=== PATIENT | female | born 1995 | race Caucasian/White ===

== ENCOUNTER → 2020-06-07 | Outpatient (CLI) | payer OTHER ==
[~2020-06-07] MED LIST: ALBUTEROL0.09 MG/A2 INH; ANAPROX DS550 MG PO; ATENOLOL25 MG PO; BACTRIM DS 8001 TAB PO; BIRTH CONTROL1 EAC1 PO; DEPO MEDRO40 MG/1 ML IM; FLEXERIL10 MG PO; GILDESS FE 1/201 TAB PO; IMITREX25 MG PO; MACROBID100 M1 PO; MIDODRINE HCL5 MG PO; MOTRIN800 MG PO; Motrin,Rufen800 MG PO; NO DAILY MEDS; NORFLEX100 MG PO; PRENATAL1 TA4 PO; PROAIR HFA0.09 MG/AC INH; PYRIDIUM200 M1 PO; ZOFRAN4 MG PO
== END | disposition home or self-care (01) ==
LOC: COVID19 11:15
PROVIDERS: ATTEND Family Medicine
DX: U07.1 COVID-19 (principal)

== ENCOUNTER → 2022-07-15 | Outpatient (CLI) | payer OTHER ==
[2022-07-15 10:36] LABS: HEMATOCRIT 43.8 % (37.0-47.0); MEAN CELL VOLUME 78.9 fl (81.0-99.0); MEAN CORPUSCULAR HGB 25.2 pg (27.0-31.0); MEAN PLATELET VOLUME 9.6 fl (9.6-12.3); PLATELET COUNT AUTOMATED 375 10*3/uL (130-400); RED BLOOD COUNT 5.55 10*6/uL (4.10-5.10); RED CELL DISTRI WIDTH 14.7 % (0-14.5); RETICULOCYTE % 1.23 % (0.50-2.50); WHITE BLOOD COUNT 8.3 10*3/uL (4.8-10.8)
[2022-07-15 10:42] LABS: BILIRUBIN Negative (Negative); BLOOD Negative (Negative); CLARITY Clear (Clear); COLOR Yellow (Yellow); GLUCOSE Negative (Negative); KETONE Negative (Negative); LEUKO ESTERASE 1+ (Negative); NITRITE Negative (Negative); SPECIFIC GRAVITY 1.015 (1.001-1.030); UROBILINOGEN 0.2 E.U./dl (0.0-1.0)
[2022-07-15 10:56] LABS: ALKALINE PHOSPHATASE 99 U/L (46-116); BUN 7 mg/dl (9-23); CHLORIDE 105 mmol/L (98-107); CHOLESTEROL 188 mg/dL (<200); GAMMA GLUTAMYL TRANSPEPTIDASE 26 U/L (0-73); LDL CHOLESTEROL 132 mg/dL (9-159); POTASSIUM 3.9 mmol/L (3.4-5.1); SGPT/ALT 17 U/L (10-49); THYROID STIM HORMONE (HS) 2.173 uIU/ml (0.550-4.780); TOTAL PROTEIN 7.2 gm/dL (6.0-8.0); TRIGLYCERIDES 107 mg/dl (<150)
[2022-07-15 11:02] LABS: BACTERIA 2+; RBC 0-2 rbc/hpf (0-2)
[2022-07-15 11:30] LABS: BASOPHILS 1 % (0-1); MICROCYTOSIS SLIGHT; PLATELET SUFFICIENCY NORMAL (NORMAL); TOTAL CELLS COUNTED 100 #CELLS
[2022-07-15 12:11] LABS: VITAMIN D, 25-HYDROXY 21.5 ng/mL (30-100)
[2022-07-16 02:06] LABS: TOTAL PROTEIN, SERUM 6.7 g/dL (6.0-8.5)
[2022-07-16 13:06] LABS: ALBUMIN 3.4 g/dL (2.9-4.4); ALPHA-1-GLOBULIN 0.3 g/dL (0.0-0.4); ALPHA-2-GLOBULIN 0.9 g/dL (0.4-1.0); BETA GLOBULIN 1.2 g/dL (0.7-1.3); GLOBULIN, TOTAL 3.3 g/dL (2.2-3.9); M-SPIKE Not Observed g/dL (Not Observed)
== END | disposition home or self-care (01) ==
LOC: LAB 10:03
PROVIDERS: ATTEND Family Medicine
DX: E78.5 Hyperlipidemia, unspecified (principal); E55.9 Vitamin D deficiency, unspecified; R79.89 Other specified abnormal findings of blood chemistry; R53.83 Other fatigue; R74.8 Abnormal levels of other serum enzymes; M54.50 Low back pain, unspecified

== ENCOUNTER → 2022-07-25 | Outpatient (CLI) | payer OTHER | END | disposition home or self-care (01) | LOC: CT 07-22 08:00 | PROVIDERS: ATTEND Family Medicine | DX: S22.32XD Fracture of one rib, left side, subsequent encounter for fracture with routine healing (principal); J98.4 Other disorders of lung; Z90.49 Acquired absence of other specified parts of digestive tract; X58.XXXD Exposure to other specified factors, subsequent encounter ==

== ENCOUNTER 2023-01-01 10:39 | Emergency (ER) | payer OTHER ==
[~2023-01-01] VITALS: Ht 165.1 cm; Wt 102.1 kg
[2023-01-01] MEDS ORDERED: SEPTDS PO (12:32)
[2023-01-01] MEDS ORDERED: PERCOCET 5-3251 EACH PO (12:32)
== END 2023-01-01 12:44 | disposition home or self-care (01) ==
LOC: ED 10:39
DX: L02.214 Cutaneous abscess of groin (principal); Z98.890 Other specified postprocedural states; J45.909 Unspecified asthma, uncomplicated